=== PATIENT | female | born 1940 | race Caucasian/White ===

== ENCOUNTER 2021-01-21 22:14 | Emergency (ER) | payer MEDICARE, OTHER ==
[~2021-01-21 22:14] MED LIST: AML5T GT; DYA375C PO; ESTR0.3T PO; FEXO-42 PO; IRBE300T79 PO; METO-158 PO; OME20T PO; POTA10TA51 PO; PRAV20TA3 GT
[2021-01-21 23:29] LABS: Basophils # (auto) 0 10 ^3/uL (0-0.2); Basophils % (auto) 0.3 % (0.0-2.0); Eosinophils # (auto) 0 10 ^3/uL (0-0.8); Eosinophils % (auto) 0.4 % (0.0-7.0); Hematocrit 36.6 % (36.0-46.0); Hemoglobin 12.7 g/dL (12.2-16.2); Lymphocytes # (auto) 0.6 10 ^3/uL (0.4-5.4); Lymphocytes % (auto) 5.5 % (10.0-50.0); Mean Corpuscular Hemoglobin 32.1 pg (28.0-32.0); Mean Corpuscular Hgb Conc. 34.7 g/dL (32.0-36.0); Mean Corpuscular Volume 92.8 fL (80.0-100.0); Monocytes # (auto) 0.8 10 ^3/uL (0-1.3); Neutrophils # (auto) 9.9 10 ^3/uL (1.6-8.6); Neutrophils % (auto) 86.8 % (37.0-80.0); Nucleated Red Blood Cells % 0.1 %; Platelet Count (auto) 208 10^3/uL (140-450); Red Blood Cells 3.95 10^6/uL (4.0-5.20); Red Cell Distribution Width 12.5 % (11.8-14.3); White Blood Cell 11.3 10^3/uL (4.4-10.8)
[2021-01-21 23:43] LABS: INR 0.92 (0.9-1.15); Partial Thromboplastin Time 24.2 sec (23.0-31.2)
[2021-01-21 23:52] LABS: Albumin 3.8 g/dL (3.4-5.0); Anion Gap 9 (5-15); Blood Urea Nitrogen 18 mg/dL (7-18); Calcium 8.6 mg/dL (8.5-10.1); Carbon Dioxide 28 mmol/L (21-32); Chloride 90 mmol/L (98-107); Glucose 124 mg/dL (74-106); Magnesium 1.7 mg/dL (1.6-2.6); Potassium 3.5 mmol/L (3.5-5.1); Sodium 127 mmol/L (136-145)
[2021-01-21 23:56] LABS: Alanine Aminotransferase 22 U/L (13-56); Alkaline Phosphatase 78 U/L (45-117); Aspartate Aminotransferase 26 U/L (15-37); BUN/Creatinine Ratio 20.5; Bilirubin, Total 0.8 mg/dL (0.2-1.0); Cholesterol 160 mg/dL (< 200); GFR African American 80 mL/min; GFR Non-African American 66 mL/min; HDL Cholesterol 59 mg/dL (40-59); LDL Cholesterol 79 mg/dL (< 100); Total Protein 7.2 g/dL (6.4-8.2); Triglycerides 222 mg/dL (< 150)
[2021-01-22] MEDS ORDERED: IOHEXOL 300 MG/ML 100ML BOTTLE IJ ONE (00:02)
[2021-01-22] MEDS ORDERED: SODIUM CHLORIDE 0.9% 2,000 ML IV ONE (02:15)
[2021-01-22 03:28] VITALS: BP 149/70
[2021-01-22] MEDS ORDERED: SODIUM CHLOR 0.9% PF (SALINE LOCK) 10ML VIAL/SYR IV SCH (06:00)
[2021-01-23] MEDS ORDERED: ASPirin 81 mg TAB PO SCH (10:00)
== END 2021-01-22 03:28 | disposition home or self-care (01) ==
LOC: EDBD 22:14 → ER 22:14
DX: R55 Syncope and collapse (principal); E86.0 Dehydration; K57.90 Diverticulosis of intestine, part unspecified, without perforation or abscess without bleeding; K44.9 Diaphragmatic hernia without obstruction or gangrene; K21.9 Gastro-esophageal reflux disease without esophagitis; E78.5 Hyperlipidemia, unspecified; I10 Essential (primary) hypertension
CPT/HCPCS: 36415; 70450; 71045; 74177; 80053; 80061; 82962; 83735; 84484; 85025; 85610; 85730; 93005; 96360; 99285; Q9967